=== PATIENT | female | born 1940 | race Caucasian/White ===

== ENCOUNTER 2020-05-26 14:51 | Emergency (ER) | payer MEDICARE, BC ==
[2020-05-26 15:53] LABS: #Lymphocytes 2.5 thou/uL (1.20-3.40); #Monocytes 0.4 thou/uL (0.11-0.59); #Neutrophils 4.6 thou/uL (1.40-6.50); %Basophils 0.6 % (0.0-1.0); %Eosinophils 0.2 % (0.0-10.0); %Lymphocytes 33.7 % (21.0-51.0); %Monocytes 4.9 % (0.0-10.0); %Neutrophils 60.6 % (42.0-75.0); Hemoglobin 12.6 g/dL (12.0-16.0); Mean Corpuscular HGB CONC 32.5 g/dL (32.0-36.0); Mean Corpuscular Hemoglobin 30.2 pg (27.0-31.0); Mean Corpuscular Volume 93.1 fL (78.0-98.0); Mean Platelet Volume 7.2 fL (7.4-10.4); Platelet Count 142 thou/uL (130-400); RBC Distribution Width 11.5 % (11.5-14.5); Red Blood Cell (RBC) Count 4.17 mill/uL (4.20-5.40); White Blood Cell (WBC) Count 7.5 thou/uL (4.8-10.8)
[2020-05-26 16:12] LABS: ALT (SGPT) 16 U/L (8-55); AST (SGOT) 18 U/L (5-34); Alkaline Phosphatase 53 U/L (40-110); Anion Gap 14 mmol/L (10-20); BUN (Urea Nitrogen) 15 mg/dL (9.8-20.1); Bilirubin, Total 0.7 mg/dL (0.2-1.2); CK (CPK) 91 U/L (29-168); Calc. Creatinine Clearance 0 mL/min (70-130); Calcium 9.7 mg/dL (7.8-10.44); Carbon Dioxide 28 mmol/L (23-31); Chloride 106 mmol/L (98-107); Globulin 2.4 g/dL (2.4-3.5); Glucose 104 mg/dL (83-110); Potassium 4.2 mmol/L (3.5-5.1); Protein, Total 6.4 g/dL (5.8-8.1); Sodium 144 mmol/L (136-145)
[2020-05-26 16:12] LABS: Bilirubin Negative (Negative); Blood, Urine Negative (Negative); Clarity Clear (Clear); Glucose, Urine (Dipstick) Negative (Negative); Ketone, Urine Trace mg/dL (Negative); Leukocyte Trace (Negative); Nitrite Negative (Negative); Protein, Urine (Dipstick) Negative (Neg-Trace); Urobilinogen 0.2 mg/dL (Less than 2)
[2020-05-26 16:20] LABS: Bacteria/HPF 3+ HPF (None Seen); RBC/HPF None Seen HPF (0-3); Squamous Epithelial 0-3 HPF (0-3); WBC/HPF 0-3 HPF (0-3)
[2020-05-26 16:26] LABS: Lipase Less than 4 U/L (8-78)
[2020-05-26] MEDS ORDERED: Nitrofurantoin Monohyd/M-Cryst 100 MG CAP ONE (16:43)
--- NOTE | 2020-05-26 19:01 | CT ---
NONCONTRAST CT HEAD: 05/26/20 HISTORY: Altered mental status. COMPARISON: None. FINDINGS: There is diminished attenuation in the periventricular white matter which is nonspecific but likely a ttributable to chronic small vessel ischemic changes. 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 There is no evid ence of an acute cortical infarction, hemorrhage, mass effect or midline shift. Mild cerebral volume loss is present. The ventricular system is normal in size, shape and position fo r the degree of sulcal atrophy. Minimal mucosal thickening is seen in each maxillary antrum. Mastoid air cells are clear. Calvarial structures have a normal appearance. IMPRESSION: 1. No acute intracranial abnormality demonstrated. POS: MAGDI
== END 2020-05-26 17:25 | disposition home or self-care (01) ==
LOC: BURERS 14:51
DX: R41.82 Altered mental status, unspecified (principal); N39.0 Urinary tract infection, site not specified; E86.0 Dehydration; E78.2 Mixed hyperlipidemia; K21.9 Gastro-esophageal reflux disease without esophagitis; I10 Essential (primary) hypertension; E11.9 Type 2 diabetes mellitus without complications; Z79.899 Other long term (current) drug therapy; Z79.84 Long term (current) use of oral hypoglycemic drugs
CPT/HCPCS: 51701; 70450; 80053; 81003; 81015; 82550; 83690; 84484; 85025; 93005

== ENCOUNTER 2021-04-22 23:50 | Emergency (ER) | payer MEDICARE, BC ==
[2021-04-23] MEDS ORDERED: cloNIDine 0.1 MG TAB ONE (00:24)
[2021-04-23 00:36] LABS: #Basophils 0.1 thou/uL (0.0-0.2); #Eosinphils 0.1 thou/uL (0.0-0.7); #Lymphocytes 2.5 thou/uL (1.20-3.40); #Monocytes 0.4 thou/uL (0.11-0.59); %Eosinophils 0.7 % (0.0-10.0); %Lymphocytes 35.6 % (21.0-51.0); %Monocytes 5.5 % (0.0-10.0); %Neutrophils 57.2 % (42.0-75.0); Hemoglobin 13.5 g/dL (12.0-16.0); Mean Corpuscular HGB CONC 34.8 g/dL (32.0-36.0); Mean Corpuscular Hemoglobin 32.3 pg (27.0-31.0); Mean Corpuscular Volume 92.8 fL (78.0-98.0); Mean Platelet Volume 6.7 fL (7.4-10.4); Platelet Count 158 thou/uL (130-400); RBC Distribution Width 11.7 % (11.5-14.5); Red Blood Cell (RBC) Count 4.19 mill/uL (4.20-5.40); White Blood Cell (WBC) Count 6.9 thou/uL (4.8-10.8)
[2021-04-23 00:41] LABS: Bilirubin Negative (Negative); Blood, Urine Trace (Negative); Clarity Clear (Clear); Glucose, Urine (Dipstick) Negative (Negative); Ketone, Urine Negative (Negative); Leukocyte Small (Negative); Nitrite Negative (Negative); Protein, Urine (Dipstick) Negative (Neg-Trace); Urobilinogen 0.2 mg/dL (Less than 2)
[2021-04-23 00:51] LABS: ALT (SGPT) 15 U/L (8-55); AST (SGOT) 15 U/L (5-34); Albumin 4.3 g/dL (3.4-4.8); Alkaline Phosphatase 112 U/L (40-110); Anion Gap 14 mmol/L (10-20); BUN (Urea Nitrogen) 17 mg/dL (9.8-20.1); Bilirubin, Total 0.6 mg/dL (0.2-1.2); Calc. Creatinine Clearance 0 mL/min (70-130); Calcium 9.9 mg/dL (7.8-10.44); Carbon Dioxide 29 mmol/L (23-31); Chloride 104 mmol/L (98-107); Globulin 2.8 g/dL (2.4-3.5); Glucose 131 mg/dL (83-110); Potassium 4.4 mmol/L (3.5-5.1); Protein, Total 7.1 g/dL (5.8-8.1); Sodium 143 mmol/L (136-145)
[2021-04-23 00:53] LABS: Bacteria/HPF 1+ HPF (None Seen); RBC/HPF None Seen HPF (0-3); Squamous Epithelial 0-3 HPF (0-3); WBC/HPF None Seen HPF (0-3)
[2021-04-23] MEDS ORDERED: Acetaminophen 500 MG TAB ONE (00:56)
== END 2021-04-23 01:57 | disposition home or self-care (01) ==
LOC: BURERS 23:50
DX: I10 Essential (primary) hypertension (principal); E78.5 Hyperlipidemia, unspecified; E78.00 Pure hypercholesterolemia, unspecified; K21.9 Gastro-esophageal reflux disease without esophagitis; E11.9 Type 2 diabetes mellitus without complications
CPT/HCPCS: 70450; 80053; 81003; 81015; 85025; 87077; 87086; 87186

== ENCOUNTER 2021-05-21 15:41 | Emergency (ER) | payer MEDICARE, BC ==
[2021-05-21 16:49] LABS: #Lymphocytes 1.8 thou/uL (1.20-3.40); #Monocytes 0.5 thou/uL (0.11-0.59); #Neutrophils 6.1 thou/uL (1.40-6.50); %Basophils 0.4 % (0.0-1.0); %Eosinophils 0.2 % (0.0-10.0); %Monocytes 6.1 % (0.0-10.0); %Neutrophils 72.2 % (42.0-75.0); Mean Corpuscular HGB CONC 32.5 g/dL (32.0-36.0); Mean Corpuscular Hemoglobin 32.1 pg (27.0-31.0); Mean Corpuscular Volume 98.8 fL (78.0-98.0); Mean Platelet Volume 6.6 fL (7.4-10.4); Platelet Count 143 thou/uL (130-400); RBC Distribution Width 12.5 % (11.5-14.5); Red Blood Cell (RBC) Count 3.74 mill/uL (4.20-5.40); White Blood Cell (WBC) Count 8.4 thou/uL (4.8-10.8)
[2021-05-21 16:53] LABS: Bilirubin Negative (Negative); Blood, Urine Negative (Negative); Clarity Clear (Clear); Glucose, Urine (Dipstick) Negative (Negative); Ketone, Urine Negative (Negative); Leukocyte Negative (Negative); Nitrite Negative (Negative); Protein, Urine (Dipstick) Negative (Neg-Trace); Specific Gravity, Urine 1.015 (1.005-1.030); Urobilinogen 0.2 mg/dL (Less than 2); pH, Urine 7.5 (5.0-9.0)
[2021-05-21 17:05] LABS: ALT (SGPT) 13 U/L (8-55); AST (SGOT) 18 U/L (5-34); Albumin 3.9 g/dL (3.4-4.8); Alkaline Phosphatase 110 U/L (40-110); Anion Gap 12 mmol/L (10-20); BUN (Urea Nitrogen) 19 mg/dL (9.8-20.1); Calc. Creatinine Clearance 0 mL/min (70-130); Calcium 9.7 mg/dL (7.8-10.44); Carbon Dioxide 31 mmol/L (23-31); Chloride 103 mmol/L (98-107); Globulin 2.8 g/dL (2.4-3.5); Glucose 91 mg/dL (83-110); Potassium 4.2 mmol/L (3.5-5.1); Protein, Total 6.7 g/dL (5.8-8.1); Sodium 142 mmol/L (136-145)
[2021-05-21] MEDS ORDERED: Acetaminophen 500 MG TAB ONE (18:18)
[2021-05-22 03:10] LABS: SARS-CoV-2 PCR by NAA Not Detected (NotDetected)
== END 2021-05-21 18:56 | disposition short-term general hospital (02) ==
LOC: BURERS 15:41
DX: M48.061 Spinal stenosis, lumbar region without neurogenic claudication (principal); R15.9 Full incontinence of feces; I10 Essential (primary) hypertension; E11.9 Type 2 diabetes mellitus without complications; E78.2 Mixed hyperlipidemia; K21.9 Gastro-esophageal reflux disease without esophagitis; Z20.822 Contact with and (suspected) exposure to COVID-19
CPT/HCPCS: 72128; 72131; 80053; 81003; 85025; 86140; U0003; U0005; 36415

== ENCOUNTER 2022-03-18 12:26 | Outpatient (CLI) | payer MEDICARE, BC ==
[2022-03-18 12:39] LABS: Bilirubin Negative (Negative); Blood, Urine Negative (Negative); Clarity Clear (Clear); Glucose, Urine (Dipstick) Negative (Negative); Ketone, Urine Negative (Negative); Leukocyte Negative (Negative); Nitrite Negative (Negative); Protein, Urine (Dipstick) Negative (Neg-Trace); Specific Gravity, Urine 1.015 (1.005-1.030); Urobilinogen 0.2 mg/dL (Less than 2); pH, Urine 5.5 (5.0-9.0)
[2022-03-18 12:46] LABS: Anion Gap 12 mmol/L (10-20); BUN (Urea Nitrogen) 21 mg/dL (9.8-20.1); Bacteria/HPF 1+ HPF (None Seen); Calc. Creatinine Clearance 0 mL/min (70-130); Calcium 7.9 mg/dL (7.8-10.44); Carbon Dioxide 31 mmol/L (23-31); Chloride 106 mmol/L (98-107); Estimated GFR 60; Glucose 113 mg/dL (83-110); Potassium 3.8 mmol/L (3.5-5.1); RBC/HPF 0-3 HPF (0-3); Sodium 145 mmol/L (136-145); Squamous Epithelial 0-3 HPF (0-3); WBC/HPF 0-3 HPF (0-3)
[2022-03-18 12:48] LABS: Urine Culture Reflex No No
[2022-03-18 12:56] LABS: Hemoglobin 10.6 g/dL (12.0-16.0); Mean Corpuscular HGB CONC 32.9 g/dL (32.0-36.0); Mean Corpuscular Hemoglobin 30.6 pg (27.0-31.0); Mean Corpuscular Volume 93.1 fl (78.0-98.0); Mean Platelet Volume 7.9 fL (7.4-10.4); Platelet Count 102 10x3/uL (130-400); RBC Distribution Width 12.2 % (11.5-14.5); Red Blood Cell (RBC) Count 3.46 mill/uL (4.20-5.40); White Blood Cell (WBC) Count 3.5 10x3/uL (4.8-10.8)
== END 2022-03-18 12:27 | disposition home or self-care (01) ==
LOC: BURMANOR 12:26
PROVIDERS: ATTEND Registered Nurse Community Health
DX: R50.9 Fever, unspecified (principal)
CPT/HCPCS: 80048; 81001; 85027; 87804

== ENCOUNTER 2022-03-18 15:29 | Outpatient (CLI) | payer MEDICARE, BC | END 2022-03-18 15:30 | disposition home or self-care (01) | LOC: BURRAD 15:29 | PROVIDERS: ATTEND Registered Nurse Community Health | DX: R50.9 Fever, unspecified (principal) | CPT/HCPCS: 71046 ==

== ENCOUNTER 2022-04-23 13:49 | Outpatient (CLI) | payer MEDICARE, BC | END 2022-04-23 13:50 | disposition home or self-care (01) | LOC: BURRAD 13:49 | PROVIDERS: ATTEND Family Medicine | DX: M25.551 Pain in right hip (principal); Z87.81 Personal history of (healed) traumatic fracture | CPT/HCPCS: 72170 ==

== ENCOUNTER 2023-02-09 12:41 | Outpatient (CLI) | payer MEDICARE, BC, OTHER | END 2023-02-09 12:42 | disposition home or self-care (01) | LOC: BURRAD 12:41 | PROVIDERS: ATTEND Family Medicine | DX: R05.3 Chronic cough (principal); R06.2 Wheezing; J98.4 Other disorders of lung; M19.011 Primary osteoarthritis, right shoulder; M19.012 Primary osteoarthritis, left shoulder; M25.78 Osteophyte, vertebrae | CPT/HCPCS: 71046 ==

== ENCOUNTER 2023-03-20 08:06 | Outpatient (CLI) | payer MEDICARE, BC, OTHER ==
[2023-03-20 08:13] LABS: Magnesium 1.1 mg/dL (1.6-2.6); Potassium 3.6 mmol/L (3.5-5.1)
== END 2023-03-20 08:07 | disposition home or self-care (01) ==
LOC: BURMANOR 08:06
PROVIDERS: ATTEND Family Medicine
DX: E11.9 Type 2 diabetes mellitus without complications (principal); M62.81 Muscle weakness (generalized); R25.2 Cramp and spasm
CPT/HCPCS: 83735; 84132